=== PATIENT | male | born 1955 | race African-American/Black ===

== ENCOUNTER 2018-03-13 08:42 | Inpatient (IN) | payer MEDICAID ==
[~2018-03-13] VITALS: Ht 190.5 cm; Wt 81.3 kg
[~2018-03-13 08:42] MED LIST: HALOPER DEC100 MG/ML IM; HALOPERIDOL5 MG PO; SILVADENE1 % EX
[2018-03-13 09:10] LABS: HEMATOCRIT 46.2 % (39.0-50.0); HEMOGLOBIN 15.1 g/dl (14.0-18.0); IMMATURE GRANULOCYTES 0.2 % (0.0-1.0); MEAN CELL VOLUME 89.4 fL CALC (80.0-100.0); MEAN CORPUSCULAR HGB 29.2 pG CALC (26.0-32.0); MEAN CORPUSCULAR HGB CONC 32.7 g/L CALC (32.0-36.0); NEUT# 2.94 thou/uL (1.82-7.42); RED BLOOD COUNT 5.17 mill/uL (4.70-6.10); RED CELL DISTRI WIDTH 14.3 % (11.5-15.5)
[2018-03-13] MEDS ORDERED: PLAVIX75 MG PO (09:40)
[2018-03-13] MEDS ORDERED: OXTELLAR XR150 MG PO (09:41)
[2018-03-13] MEDS ORDERED: ATORVASTATIN CA40 MG PO (09:41)
[2018-03-13] MEDS ORDERED: ADULT ASPIRIN R81 MG PO (09:42)
[2018-03-13 09:57] LABS: ANION GAP 17 (6-22 (CALC)); BUN 13 mg/dL (8-23); BUN/CREATININE RATIO 12 (12-20 (CALC)); CARBON DIOXIDE 24 mmol/l (22-30); CHLORIDE 102 mmol/l (95-108); CREATININE 1.1 mg/dL (0.7-1.3); GFR > 60 ML/MIN (>=60 (CALC)); GFR FOR AFR.AMER. > 60 ML/MIN (>=60 (CALC)); POTASSIUM 4.6 mmol/l (3.5-5.1); SODIUM 138 mmol/l (137-146)
[2018-03-13 11:24] VITALS: BP 149/77
[2018-03-13 15:14] VITALS: BP 150/84
[2018-03-13] MEDS ORDERED: ZESTRIL5 M1 PO ×2 (17:49→17:52)
[2018-03-13 19:00] VITALS: BP 159/87
[2018-03-13 23:42] VITALS: BP 145/76
[2018-03-14] VITALS (13 sets, daily range): BP systolic 112–160; BP diastolic 75–96
[2018-03-14 04:44] LABS: HEMOGLOBIN 15.9 g/dl (14.0-18.0); MEAN CELL VOLUME 87.8 fL CALC (80.0-100.0); MEAN CORPUSCULAR HGB 29.1 pG CALC (26.0-32.0); MEAN CORPUSCULAR HGB CONC 33.1 g/L CALC (32.0-36.0); RED BLOOD COUNT 5.47 mill/uL (4.70-6.10); RED CELL DISTRI WIDTH 14.1 % (11.5-15.5)
[2018-03-14 04:59] LABS: CHOLESTEROL HDL RATIO 1.8 (<4.4 (CALC))
[2018-03-14 05:43] LABS: ANION GAP 18 (6-22 (CALC)); BUN 17 mg/dL (8-23); BUN/CREATININE RATIO 16 (12-20 (CALC)); CARBON DIOXIDE 22 mmol/l (22-30); CHLORIDE 104 mmol/l (95-108); CREATININE 1.1 mg/dL (0.7-1.3); GFR > 60 ML/MIN (>=60 (CALC)); GFR FOR AFR.AMER. > 60 ML/MIN (>=60 (CALC)); MAGNESIUM 1.8 mg/dL (1.6-2.3); POTASSIUM 4.5 mmol/l (3.5-5.1); SODIUM 139 mmol/l (137-146)
[2018-03-15] VITALS (13 sets, daily range): BP systolic 113–155; BP diastolic 64–111
[2018-03-15 05:02] LABS: HEMATOCRIT 49.5 % (39.0-50.0); HEMOGLOBIN 16.5 g/dl (14.0-18.0); MEAN CELL VOLUME 87.9 fL CALC (80.0-100.0); MEAN CORPUSCULAR HGB 29.3 pG CALC (26.0-32.0); MEAN CORPUSCULAR HGB CONC 33.3 g/L CALC (32.0-36.0); RED BLOOD COUNT 5.63 mill/uL (4.70-6.10); RED CELL DISTRI WIDTH 13.9 % (11.5-15.5)
[2018-03-15 05:14] LABS: ANION GAP 17 (6-22 (CALC)); BUN 20 mg/dL (8-23); BUN/CREATININE RATIO 19 (12-20 (CALC)); CARBON DIOXIDE 26 mmol/l (22-30); CHLORIDE 101 mmol/l (95-108); GFR > 60 ML/MIN (>=60 (CALC)); GFR FOR AFR.AMER. > 60 ML/MIN (>=60 (CALC)); POTASSIUM 4.6 mmol/l (3.5-5.1); SODIUM 139 mmol/l (137-146)
[2018-03-16] VITALS: BP 140/90
[2018-03-16 02:00] VITALS: BP 157/92
[2018-03-16 04:00] VITALS: BP 157/92
[2018-03-16 05:17] LABS: ANION GAP 16 (6-22 (CALC)); BUN 22 mg/dL (8-23); BUN/CREATININE RATIO 21 (12-20 (CALC)); CARBON DIOXIDE 26 mmol/l (22-30); CHLORIDE 100 mmol/l (95-108); CREATININE 1.1 mg/dL (0.7-1.3); GFR > 60 ML/MIN (>=60 (CALC)); GFR FOR AFR.AMER. > 60 ML/MIN (>=60 (CALC)); MAGNESIUM 1.7 mg/dL (1.6-2.3); POTASSIUM 4.8 mmol/l (3.5-5.1); SODIUM 138 mmol/l (137-146)
[2018-03-16 09:18] VITALS: BP 129/65
[2018-03-16] MEDS ORDERED: XARELTO15 MG PO (11:18)
[2018-03-16] MEDS ORDERED: AMLODIPINE BESYL5 MG PO (11:18)
[2018-03-16] MEDS ORDERED: PREDNISONE10 MG PO (11:18)
[2018-03-16] MEDS ORDERED: PEPCID20 MG PO (11:18)
[2018-03-16] MEDS ORDERED: LOPRESSOR25 MG PO (11:18)
[2018-03-16] MEDS ORDERED: XARELTO20 MG PO (11:39)
== END 2018-03-16 13:20 | disposition home or self-care (01) | DRG 309 ==
LOC: ED 08:42 → ED-I 10:07 → ED 10:23 → MS2 10:24 → ICU 03-14 05:30
PROVIDERS: Family Medicine; Nurse Practitioner Family; ADMIT Internal Medicine; ATTEND Internal Medicine
DX: I48.1 Persistent atrial fibrillation (principal); L97.319 Non-pressure chronic ulcer of right ankle with unspecified severity; F20.9 Schizophrenia, unspecified; L97.329 Non-pressure chronic ulcer of left ankle with unspecified severity; T78.3XXA Angioneurotic edema, initial encounter; I48.92 Unspecified atrial flutter; T46.4X5A Adverse effect of angiotensin-converting-enzyme inhibitors, initial encounter; F17.210 Nicotine dependence, cigarettes, uncomplicated; I10 Essential (primary) hypertension; I25.10 Atherosclerotic heart disease of native coronary artery without angina pectoris; E78.5 Hyperlipidemia, unspecified; I83.013 Varicose veins of right lower extremity with ulcer of ankle; I83.023 Varicose veins of left lower extremity with ulcer of ankle; I70.243 Atherosclerosis of native arteries of left leg with ulceration of ankle; I70.233 Atherosclerosis of native arteries of right leg with ulceration of ankle; I08.1 Rheumatic disorders of both mitral and tricuspid valves; Z79.82 Long term (current) use of aspirin; Z95.5 Presence of coronary angioplasty implant and graft; Z79.02 Long term (current) use of antithrombotics/antiplatelets

== ENCOUNTER 2018-08-07 08:30 | Outpatient (RCR) | payer MEDICAID ==
[~2018-08-07] VITALS: Ht 182.9 cm; Wt 86.2 kg
[~2018-08-07 08:30] MED LIST changes: +ADULT ASPIRIN R81 MG PO; +AMLODIPINE BESYL5 MG PO; +ATORVASTATIN CA40 MG PO; +LOPRESSOR25 MG PO; +OXTELLAR XR150 MG PO; +PEPCID20 MG PO; +PLAVIX75 MG PO; +PREDNISONE10 MG PO; +XARELTO15 MG PO; +XARELTO20 MG PO; +ZESTRIL5 M1 PO
== END 2018-08-07 09:00 | disposition home or self-care (01) ==
LOC: OPWC 08:30
PROVIDERS: ATTEND Podiatrist Foot & Ankle Surgery
DX: L97.819 Non-pressure chronic ulcer of other part of right lower leg with unspecified severity (principal); L97.829 Non-pressure chronic ulcer of other part of left lower leg with unspecified severity; Z48.00 Encounter for change or removal of nonsurgical wound dressing
CPT/HCPCS: G0463

== ENCOUNTER 2019-10-10 09:58 | Inpatient (IN) | payer MEDICAID ==
[~2019-10-10] VITALS: Ht 190.5 cm; Wt 75.1 kg
[2019-10-10] VITALS (10 sets, daily range): BP systolic 121–160; BP diastolic 69–89
[2019-10-10 10:59] LABS: IMMATURE GRANULOCYTES 0.5 % (0.0-5.0); MEAN CORPUSCULAR HGB 24.4 pG CALC (26.0-32.0); NEUT# 9.42 thou/uL (1.82-7.42); RED BLOOD COUNT 4.14 mill/uL (4.70-6.10); RED CELL DISTRI WIDTH 16.9 % (11.5-15.5)
[2019-10-10 11:00] LABS: HEMATOCRIT 33.7 % (39.0-50.0); HEMOGLOBIN 10.1 g/dl (14.0-18.0); MEAN CELL VOLUME 81.4 fL CALC (80.0-100.0)
[2019-10-10 11:19] LABS: ALKALINE PHOSPHATASE 190 u/l (38-126); BUN 18 mg/dL (8-23); BUN/CREATININE RATIO 13 (12-20 (CALC)); CARBON DIOXIDE 22 mmol/l (22-30); CHLORIDE 101 mmol/l (95-108); CREATININE 1.4 mg/dL (0.7-1.3); GFR 51 ML/MIN (>=60 (CALC)); GFR FOR AFR.AMER. > 60 ML/MIN (>=60 (CALC)); SODIUM 135 mmol/l (137-146)
[2019-10-10 11:23] LABS: ALBUMIN 4.1 g/dL (3.2-5.0); ANION GAP 18 (6-22 (CALC)); BILIRUBIN, TOTAL 0.6 mg/dL (0.0-1.4); POTASSIUM 5.9 mmol/l (3.5-5.1); SGOT/AST 251 u/l (19-48)
[2019-10-10 11:35] LABS: URINE BILIRUBIN - DIPSTICK NEGATIVE (NEGATIVE); URINE BLOOD DIPSTICK NEGATIVE (NEGATIVE); URINE COLOR YELLOW; URINE GLUCOSE - DIPSTICK NEGATIVE (NEGATIVE); URINE KETONE NEGATIVE (NEGATIVE); URINE LEUK ESTERASE NEGATIVE (NEGATIVE); URINE NITRITE - DIPSTICK NEGATIVE (Negative); URINE PROTEIN - DIPSTICK TRACE mg/dL (NEG-TRACE); URINE UROBILINOGEN - DIPSTICK 0.2 E.U./dL (0.2)
[2019-10-10] MEDS ORDERED: ADLT ASA LOW81 MG PO (15:53)
[2019-10-10] MEDS ORDERED: ATORVASTATIN CA40 MG PO (15:53)
[2019-10-10] MEDS ORDERED: DILTIAZEM240 MG PO (15:54)
[2019-10-10] MEDS ORDERED: CLOPIDOGREL75 MG PO (15:54)
[2019-10-10] MEDS ORDERED: LASIX 20 MG TAB20 MG PO (15:55)
[2019-10-10] MEDS ORDERED: PRINIVIL5 MG PO (15:55)
[2019-10-10] MEDS ORDERED: HALDOL DECA100 MG/ML (15:56)
[2019-10-10] MEDS ORDERED: LOPRESSOR50 M1 PO (16:05)
[2019-10-10] MEDS ORDERED: XARELTO10 MG PO (16:06)
[2019-10-10] MEDS ORDERED: OMEPRAZOLE10 MG PO (16:06)
[2019-10-10 19:04] LABS: BARBITURATES NEGATIVE (NEGATIVE); COCAINE NEGATIVE (NEGATIVE); METHADONE NEGATIVE (NEGATIVE); OXCYCODONE NEGATIVE (NEGATIVE); TETRAHYDROCANNABIONOL NEGATIVE (NEGATIVE); TRICYLIC ANTIDEPRESSANTS NEGATIVE (NEGATIVE)
[2019-10-10 20:02] LABS: HEMATOCRIT 33.7 % (39.0-50.0); HEMOGLOBIN 10.3 g/dl (14.0-18.0)
[2019-10-10 20:24] LABS: ANION GAP 21 (6-22 (CALC)); BUN 25 mg/dL (8-23); BUN/CREATININE RATIO 18 (12-20 (CALC)); CARBON DIOXIDE 20 mmol/l (22-30); CHLORIDE 100 mmol/l (95-108); CREATININE 1.4 mg/dL (0.7-1.3); GFR 51 ML/MIN (>=60 (CALC)); GFR FOR AFR.AMER. > 60 ML/MIN (>=60 (CALC)); POTASSIUM 4.9 mmol/l (3.5-5.1); SODIUM 136 mmol/l (137-146)
[2019-10-11] VITALS (14 sets, daily range): BP systolic 110–149; BP diastolic 63–84
[2019-10-11 05:54] LABS: HEMATOCRIT 32.7 % (39.0-50.0); HEMOGLOBIN 10.2 g/dl (14.0-18.0); IMMATURE GRANULOCYTES 0.6 % (0.0-5.0); MEAN CELL VOLUME 77.5 fL CALC (80.0-100.0); MEAN CORPUSCULAR HGB 24.2 pG CALC (26.0-32.0); MEAN CORPUSCULAR HGB CONC 31.2 g/L CALC (32.0-36.0); NEUT# 7.8 thou/uL (1.82-7.42); RED BLOOD COUNT 4.22 mill/uL (4.70-6.10); RED CELL DISTRI WIDTH 16.3 % (11.5-15.5)
[2019-10-11 06:25] LABS: ANION GAP 16 (6-22 (CALC)); BUN 30 mg/dL (8-23); BUN/CREATININE RATIO 22 (12-20 (CALC)); CARBON DIOXIDE 24 mmol/l (22-30); CHLORIDE 100 mmol/l (95-108); CREATININE 1.4 mg/dL (0.7-1.3); GFR 51 ML/MIN (>=60 (CALC)); GFR FOR AFR.AMER. > 60 ML/MIN (>=60 (CALC)); POTASSIUM 4.6 mmol/l (3.5-5.1); SODIUM 136 mmol/l (137-146)
[2019-10-12] VITALS (12 sets, daily range): BP systolic 102–145; BP diastolic 40–96
[2019-10-12 05:45] LABS: HEMATOCRIT 31.1 % (39.0-50.0); HEMOGLOBIN 9.9 g/dl (14.0-18.0); IMMATURE GRANULOCYTES 0.3 % (0.0-5.0); MEAN CELL VOLUME 76.8 fL CALC (80.0-100.0); MEAN CORPUSCULAR HGB 24.4 pG CALC (26.0-32.0); MEAN CORPUSCULAR HGB CONC 31.8 g/L CALC (32.0-36.0); NEUT# 6.62 thou/uL (1.82-7.42); RED BLOOD COUNT 4.05 mill/uL (4.70-6.10); RED CELL DISTRI WIDTH 16.1 % (11.5-15.5)
[2019-10-12 06:10] LABS: ANION GAP 15 (6-22 (CALC)); BUN 27 mg/dL (8-23); BUN/CREATININE RATIO 25 (12-20 (CALC)); CARBON DIOXIDE 26 mmol/l (22-30); CHLORIDE 98 mmol/l (95-108); CREATININE 1.1 mg/dL (0.7-1.3); GFR > 60 ML/MIN (>=60 (CALC)); GFR FOR AFR.AMER. > 60 ML/MIN (>=60 (CALC)); POTASSIUM 4.6 mmol/l (3.5-5.1); SODIUM 134 mmol/l (137-146)
[2019-10-13] VITALS (12 sets, daily range): BP systolic 101–125; BP diastolic 55–77
[2019-10-13 05:59] LABS: HEMOGLOBIN 10.7 g/dl (14.0-18.0); IMMATURE GRANULOCYTES 0.5 % (0.0-5.0); MEAN CELL VOLUME 76.4 fL CALC (80.0-100.0); MEAN CORPUSCULAR HGB CONC 31.5 g/L CALC (32.0-36.0); NEUT# 10.31 thou/uL (1.82-7.42); RED BLOOD COUNT 4.45 mill/uL (4.70-6.10); RED CELL DISTRI WIDTH 16.1 % (11.5-15.5)
[2019-10-13 06:12] LABS: ANION GAP 15 (6-22 (CALC)); BUN 26 mg/dL (8-23); BUN/CREATININE RATIO 24 (12-20 (CALC)); CARBON DIOXIDE 27 mmol/l (22-30); CHLORIDE 96 mmol/l (95-108); CREATININE 1.1 mg/dL (0.7-1.3); GFR > 60 ML/MIN (>=60 (CALC)); GFR FOR AFR.AMER. > 60 ML/MIN (>=60 (CALC)); POTASSIUM 4.7 mmol/l (3.5-5.1); SODIUM 133 mmol/l (137-146)
[2019-10-14 05:00] VITALS: BP 112/66
[2019-10-14 10:55] VITALS: BP 111/69
[2019-10-14] MEDS ORDERED: LEVAQUIN750 MG PO (11:29)
== END 2019-10-14 13:45 | disposition home or self-care (01) | DRG 291 ==
LOC: ED 09:58 → ED-I 11:54 → ED 12:40 → ICU 12:41
PROVIDERS: Nurse Practitioner Family; ADMIT Internal Medicine; ATTEND Internal Medicine
PROC: 5A09357 Assistance with Respiratory Ventilation, Less than 24 Consecutive Hours, Continuous Positive Airway Pressure (ICD-10-PCS; principal; 2019-10-10)
PROC: 0T9B70Z Drainage of Bladder with Drainage Device, Via Natural or Artificial Opening (ICD-10-PCS; 2019-10-11)
DX: I11.0 Hypertensive heart disease with heart failure (principal); J96.01 Acute respiratory failure with hypoxia; J44.1 Chronic obstructive pulmonary disease with (acute) exacerbation; L97.929 Non-pressure chronic ulcer of unspecified part of left lower leg with unspecified severity; L97.919 Non-pressure chronic ulcer of unspecified part of right lower leg with unspecified severity; I50.23 Acute on chronic systolic (congestive) heart failure; I87.8 Other specified disorders of veins; I25.10 Atherosclerotic heart disease of native coronary artery without angina pectoris; I48.91 Unspecified atrial fibrillation; H40.9 Unspecified glaucoma; E78.5 Hyperlipidemia, unspecified; F20.9 Schizophrenia, unspecified; D64.9 Anemia, unspecified; G62.9 Polyneuropathy, unspecified; K21.9 Gastro-esophageal reflux disease without esophagitis; F17.210 Nicotine dependence, cigarettes, uncomplicated; Z95.5 Presence of coronary angioplasty implant and graft
CPT/HCPCS: J1650; J1956; J2060; S0164